=== PATIENT | male | born 1965 | race Caucasian/White ===

== ENCOUNTER → 2016-12-15 | Outpatient (CLI) | payer BC ==
[~2016-12-15] MED LIST: AZITTAB PO; GUAISYP4 PO; IBUP-1050 PO; LCTX PO
--- NOTE | 2016-12-15 07:51 | DIAGNOSTIC IMAGING REPORT ---
MRI LUMBAR SPINE W/O CONTRAST CLINICAL HISTORY: Low back pain with left-sided radiculopathy. TECHNIQUE: Sagittal and axial T1, T2 and STIR images were obtained. COMPARISON STUDY: No previous studies for comparison. OBSERVATIONS: The vertebral bodies and posterior elements appear intact. There is no abnormal bony signal present to suggest a marrow replacement process. L1-2: No disc protrusions or extrusions. No evidence of spinal canal or neural foraminal compromise. L2-3: There is a tiny annular fissure. There is no significant disc bulge or focal herniation. There is no spinal or foraminal stenosis L3-4: No disc protrusions or extrusions. No evidence of spinal canal or neural foraminal compromise. L4-5: There is a left posterior lateral/foraminal disc protrusion. This likely impinges on the left L4 nerve root. There is deformity of the left anterior aspect the thecal sac. L5-S1: There is disc desiccation. There is a tiny central disc osteophyte complex. There is no significant spinal or foraminal stenosis. The conus medullaris and cauda equina appear normal. IMPRESSION: Left posterior lateral/foraminal disc protrusion at the L4-5 level. This likely impinges on the left L4 nerve root. Electronically signed by: Randy Zarco M.D. 12/15/2016 7:49 AM Dictated Date/Time: 12/15/2016 7:39 AM
== END | disposition home or self-care (01) ==
LOC: C.MRIBC 07:00
PROVIDERS: ATTEND Family Medicine
DX: M51.16 Intervertebral disc disorders with radiculopathy, lumbar region (principal)